=== PATIENT | female | born 1965 | race Caucasian/White ===

== ENCOUNTER 2020-03-13 12:19 | Outpatient (REF) | payer OTHER, SELFPAY ==
[2020-03-13 14:53] LABS: MANUAL DIFF FLAG NO
[2020-03-13 14:57] LABS: Basophils Percent Auto 0.6 % (0-2); Eosinophils Absolute Auto 0.1 X10*3/uL (0.0-0.4); Eosinophils Percent Auto 2.1 % (0-4); Hematocrit 40.2 % (37-47); Hemoglobin 13.3 g/dl (12.0-16.0); Imm Gran Abs Auto 0.01 X10*3/uL (0.00-0.03); Imm Gran Pct Auto 0.2 % (0.0-0.4); Lymphocytes Absolute Auto 1.9 X10*3/uL (1.2-4.9); Lymphocytes Percent Auto 38.2 % (20-40); Mean Corpuscular HGB Conc 33.1 g/dl (31.0-35.0); Mean Corpuscular Volume 96.9 fL (80-98); Mean Platelet Volume 9.5 fL (9.4-12.3); Monocytes Absolute Auto 0.3 X10*3/uL (0.1-1.2); Monocytes Percent Auto 5.7 % (2-11); Neutrophils Absolute Auto 2.6 X10*3/uL (2.0-8.3); Neutrophils Percent Auto 53.2 % (45-73); Platelet Count 329 X10*3/uL (160-400); Red Blood Count 4.15 X10*6/uL (4.20-5.50); Red Cell Distribution Width 12.7 % (11.0-16.0); White Blood Count 4.9 X10*3/uL (4.8-10.8)
[2020-03-13 15:27] LABS: Alanine Aminotransferase 35 U/L (0-31); Albumin Level 4.4 g/dL (3.5-5.0); Alkaline Phosphatase 97 U/L (39-117); Anion Gap 14 (12-20); Aspartate Amino Transferase 20 U/L (5-31); Bilirubin Total 0.9 mg/dL (0.0-1.0); Blood Urea Nitrogen 13 mg/dL (9-16); Calcium 8.8 mg/dL (8.4-10.2); Carbon Dioxide 29 mmol/L (22-29); Chloride 101 mmol/L (96-108); Estimated Glomerular Filt Rate > 60; Glucose Random 84 mg/dL (60-115); Potassium 4.6 mmol/l (3.3-5.1); Sodium 139 mmol/L (135-145); Total Protein 6.6 g/dL (6.5-8.0)
[2020-03-13 15:51] LABS: Free T4 (Free Thyroxine) 0.87 ng/dL (0.71-1.85); Vitamin D 25-OH Total 55.7 ng/mL (>30)
[2020-03-13 15:52] LABS: Vitamin B12 > 2000 pg/mL (200-900)
[2020-03-13 16:29] LABS: T4 Thyroxine 5.1 ug/dL (4.5-12.0)
[2020-03-14 08:48] LABS: Thyroid Peroxidase Antibodies 1 IU/mL (<9)
[2020-03-14 18:37] LABS: Triiodothyronine T3 Total 104 ng/dL (76-181)
[2020-03-16 06:56] LABS: Copper, serum 105 mcg/dL (70-175)
[2020-03-16 16:47] LABS: Zinc 221 mcg/dL (60-130)
[2020-03-17 12:43] LABS: Triiodothyronine T3 Reverse 13 ng/dL (8-25)
== END 2020-03-13 12:20 | disposition home or self-care (01) ==
LOC: HO.HMGCLDS 12:19
PROVIDERS: PCP Family Medicine; Visit Provider Psychiatry & Neurology Psychiatry
DX: R53.83 Other fatigue (principal); F41.9 Anxiety disorder, unspecified; F32.9 Major depressive disorder, single episode, unspecified; L65.9 Nonscarring hair loss, unspecified; E55.9 Vitamin D deficiency, unspecified
CPT/HCPCS: 36415; 80053; 82306; 82525; 82607; 84436; 84439; 84443; 84480; 84481; 84482; 84630; 85025; 86376

== ENCOUNTER 2020-06-25 08:12 | Outpatient (REF) | payer OTHER, SELFPAY ==
[2020-06-25 09:28] LABS: C Reactive Protein 0.07 mg/dL (< or = 0.50)
[2020-06-25 09:37] LABS: Erythrocyte Sedimentation Rate 2 MM/HR (0-20)
[2020-06-26 08:07] LABS: Follicle Stimulating Hormone 72.9 mIU/mL; Lutenizing Hormone 35.4 mIU/mL
[2020-06-26 09:21] LABS: DHEA Sulfate 40 mcg/dL (8-188)
[2020-06-26 14:56] LABS: Adrenocorticotropic Hormone 13 pg/mL (6-50)
[2020-06-28 16:31] LABS: Iodine, Serum/Plasma 57 mcg/L (52-109)
[2020-06-28 22:31] LABS: Anti Nuclear Antibody Pattern Nuclear, Homogeneous; Anti Nuclear Antibody Screen POSITIVE (NEGATIVE); Anti Nuclear Antibody Titer 1:40 titer
[2020-06-28 23:21] LABS: Pregnenolone, LC/MS 47 ng/dL (22-237)
[2020-06-29 15:46] LABS: Progesterone <0.1 ng/mL
[2020-06-29 18:12] LABS: Testosterone, Free 0.8 pg/mL (0.1-6.4); Testosterone, Total 12 ng/dL (2-45)
[2020-07-01 00:56] LABS: Dihydrotestosterone <5 ng/dL (< OR = 20); Estradiol Free <0.03 pg/mL; Estradiol, Ultrasensitive <2 pg/mL
[2020-07-04 08:27] LABS: Methylmalonic Acid 169 nmol/L (87-318)
== END 2020-06-25 08:13 | disposition home or self-care (01) ==
LOC: HO.LAB 08:12
PROVIDERS: PCP Family Medicine; Visit Provider Nurse Practitioner Family
DX: R53.83 Other fatigue (principal); L65.8 Other specified nonscarring hair loss; N95.8 Other specified menopausal and perimenopausal disorders
CPT/HCPCS: 36415; 82024; 82533; 82627; 82642; 82670; 82681; 83001; 83002; 83735; 83789; 83921; 84143; 84144; 84402; 84403; 85652; 86038; 86039; 86140

== ENCOUNTER 2020-11-22 15:30 | Outpatient (REF) | payer OTHER, SELFPAY ==
[2020-11-22 16:03] LABS: MANUAL DIFF FLAG NO
[2020-11-22 16:12] LABS: Basophils Percent Auto 0.3 % (0-2); Eosinophils Absolute Auto 0.1 X10*3/uL (0.0-0.4); Eosinophils Percent Auto 2.1 % (0-4); Hematocrit 34.9 % (37-47); Hemoglobin 11.5 g/dl (12.0-16.0); Imm Gran Abs Auto 0.01 X10*3/uL (0.00-0.03); Imm Gran Pct Auto 0.2 % (0.0-0.4); Lymphocytes Absolute Auto 1.8 X10*3/uL (1.2-4.9); Lymphocytes Percent Auto 30.6 % (20-40); Mean Corpuscular Hemoglobin 31.6 pg (27.0-33.0); Mean Corpuscular Volume 95.9 fL (80-98); Mean Platelet Volume 9.3 fL (9.4-12.3); Monocytes Absolute Auto 0.3 X10*3/uL (0.1-1.2); Monocytes Percent Auto 5.7 % (2-11); Neutrophils Absolute Auto 3.6 X10*3/uL (2.0-8.3); Neutrophils Percent Auto 61.1 % (45-73); Platelet Count 258 X10*3/uL (160-400); Red Blood Count 3.64 X10*6/uL (4.20-5.50); Red Cell Distribution Width 12.4 % (11.0-16.0); White Blood Count 5.8 X10*3/uL (4.8-10.8)
[2020-11-22 16:34] LABS: Alanine Aminotransferase 29 U/L (0-31); Albumin Level 3.9 g/dL (3.5-5.0); Alkaline Phosphatase 84 U/L (39-117); Anion Gap 11 (12-20); Aspartate Amino Transferase 19 U/L (5-31); Bilirubin Total 0.6 mg/dL (0.0-1.0); Blood Urea Nitrogen 18 mg/dL (9-16); Calcium 8.9 mg/dL (8.4-10.2); Carbon Dioxide 27 mmol/L (22-29); Chloride 107 mmol/L (96-108); Estimated Glomerular Filt Rate > 60; Glucose Random 79 mg/dL (60-115); Potassium 3.9 mmol/L (3.3-5.1); Sodium 141 mmol/L (135-145); Total Protein 5.7 g/dL (6.5-8.0)
[2020-11-22 16:53] LABS: TSH reflex Free T4 0.99 uIU/mL (0.32-4.0)
[2020-11-23 17:51] LABS: Triiodothyronine T3 Total 74 ng/dL (76-181)
[2020-11-26 15:41] LABS: Anti Nuclear Antibody Screen NEGATIVE (NEGATIVE)
[2020-11-27 15:40] LABS: Iodine, Serum/Plasma 47 mcg/L (52-109)
== END 2020-11-22 15:31 | disposition home or self-care (01) ==
LOC: HO.LAB 15:30
PROVIDERS: Visit Provider Dermatology
DX: L64.8 Other androgenic alopecia (principal)
CPT/HCPCS: 36415; 80053; 83789; 84134; 84443; 84480; 85025; 86038; 86039

== ENCOUNTER 2021-01-04 09:50 | Outpatient (REF) | payer OTHER, SELFPAY ==
[2021-01-04 10:12] LABS: MANUAL DIFF FLAG NO
[2021-01-04 11:16] LABS: Basophils Percent Auto 0.8 % (0-2); Eosinophils Absolute Auto 0.1 X10*3/uL (0.0-0.4); Eosinophils Percent Auto 3.7 % (0-4); Hematocrit 37.2 % (37-47); Hemoglobin 12.4 g/dl (12.0-16.0); Imm Gran Abs Auto 0.01 X10*3/uL (0.00-0.03); Imm Gran Pct Auto 0.3 % (0.0-0.4); Lymphocytes Absolute Auto 1.4 X10*3/uL (1.2-4.9); Lymphocytes Percent Auto 38.3 % (20-40); Mean Corpuscular HGB Conc 33.3 g/dl (31.0-35.0); Mean Corpuscular Hemoglobin 32.4 pg (27.0-33.0); Mean Corpuscular Volume 97.1 fL (80-98); Mean Platelet Volume 9.8 fL (9.4-12.3); Monocytes Absolute Auto 0.2 X10*3/uL (0.1-1.2); Monocytes Percent Auto 5.6 % (2-11); Neutrophils Absolute Auto 1.9 X10*3/uL (2.0-8.3); Neutrophils Percent Auto 51.3 % (45-73); Platelet Count 292 X10*3/uL (160-400); Red Blood Count 3.83 X10*6/uL (4.20-5.50); Red Cell Distribution Width 12.7 % (11.0-16.0); White Blood Count 3.8 X10*3/uL (4.8-10.8)
[2021-01-04 12:06] LABS: Iron 53 mcg/dL (30-160); Percent Iron Saturation 15 % (15-50); Total Iron Binding Capacity 345 mcg/dL (228-428); Unsaturated Iron Binding 292 ug/dL
[2021-01-04 12:17] LABS: Vitamin D 25-OH Total 78.3 ng/mL (>30)
[2021-01-04 12:33] LABS: Folate > 20.0 ng/mL (> or = 4.0); Vitamin B12 1541 pg/mL (200-900)
[2021-01-04 12:53] LABS: Ferritin 115 ng/mL (10-250); T4 Thyroxine 5.9 ug/dL (4.5-12.0)
[2021-01-06 04:11] LABS: Triiodothyronine T3 Free 2.9 pg/mL (2.3-4.2); Triiodothyronine T3 Total 94 ng/dL (76-181)
[2021-01-07 19:06] LABS: Thyroid Peroxidase Antibodies 2 IU/mL (<9)
[2021-01-10 11:11] LABS: Triiodothyronine T3 Reverse 8 ng/dL (8-25)
[2021-01-10 13:57] LABS: Vitamin B6 20.4 ng/mL (2.1-21.7)
== END 2021-01-04 09:51 | disposition home or self-care (01) ==
LOC: HO.LAB 09:50
PROVIDERS: PCP Family Medicine; Visit Provider Psychiatry & Neurology Psychiatry
DX: R53.83 Other fatigue (principal); D64.9 Anemia, unspecified; F32.A Depression, unspecified
CPT/HCPCS: 36415; 82306; 82607; 82728; 82746; 83540; 84207; 84436; 84439; 84443; 84480; 84481; 84482; 85025; 86376

== ENCOUNTER 2021-05-28 07:25 | Outpatient (REF) | payer OTHER, SELFPAY ==
[2021-05-29 17:11] LABS: DHEA Sulfate 41 mcg/dL (5-167); Sex Hormone Binding Globulin 104 nmol/L (17-124)
[2021-06-01 22:40] LABS: Dihydrotestosterone <5 ng/dL (< OR = 20)
[2021-06-01 23:56] LABS: Estrone 14 pg/mL
[2021-06-02 14:22] LABS: Progesterone 2.1 ng/mL
[2021-06-02 18:56] LABS: Testosterone, Free 0.5 pg/mL (0.1-6.4); Testosterone, Total 8 ng/dL (2-45)
[2021-06-03 09:52] LABS: Pregnenolone, LC/MS 27 ng/dL (22-237)
[2021-06-06 21:31] LABS: Estradiol Free 0.06 pg/mL; Estradiol, Ultrasensitive 4 pg/mL
== END 2021-05-28 07:26 | disposition home or self-care (01) ==
LOC: HO.HMGCLR 07:25
PROVIDERS: PCP Family Medicine; Visit Provider Psychiatry & Neurology Psychiatry
DX: Z78.0 Asymptomatic menopausal state (principal)
CPT/HCPCS: 36415; 82627; 82642; 82670; 82679; 82681; 84143; 84144; 84270; 84402; 84403

== ENCOUNTER 2021-07-25 15:47 | Outpatient (REF) | payer OTHER, SELFPAY ==
[2021-07-25 16:12] LABS: MANUAL DIFF FLAG NO
[2021-07-25 16:59] LABS: Basophils Percent Auto 0.7 % (0-2); Eosinophils Absolute Auto 0.3 X10*3/uL (0.0-0.4); Imm Gran Abs Auto 0.01 X10*3/uL (0.00-0.03); Imm Gran Pct Auto 0.2 % (0.0-0.4); Lymphocytes Absolute Auto 2.2 X10*3/uL (1.2-4.9); Lymphocytes Percent Auto 37.7 % (20-40); Mean Corpuscular HGB Conc 33.3 g/dl (31.0-35.0); Mean Corpuscular Hemoglobin 31.9 pg (27.0-33.0); Mean Corpuscular Volume 95.6 fL (80.0-98.0); Mean Platelet Volume 9.1 fL (9.4-12.3); Monocytes Absolute Auto 0.4 X10*3/uL (0.1-1.2); Monocytes Percent Auto 6.1 % (2-11); Neutrophils Absolute Auto 2.9 x10*3/uL (2.0-8.3); Neutrophils Percent Auto 50.3 % (45-73); Platelet Count 299 X10*3/uL (160-400); Red Blood Count 4.08 X10*6/uL (4.20-5.50); Red Cell Distribution Width 12.7 % (11.0-16.0); White Blood Count 5.8 X10*3/uL (4.8-10.8)
[2021-07-25 17:02] LABS: Iron 97 mcg/dL (30-160); Percent Iron Saturation 28 % (15-50); Total Iron Binding Capacity 352 mcg/dL (228-428); Unsaturated Iron Binding 255 ug/dL
[2021-07-25 17:26] LABS: Ferritin 55 ng/mL (10-250); Free T4 (Free Thyroxine) 0.84 ng/dL (0.71-1.85); T4 Thyroxine 6.2 ug/dL (4.5-12.0); Thyroid Stimulating Hormone 1.21 uIU/mL (0.32-4.0)
[2021-07-27 04:02] LABS: DHEA Sulfate 36 mcg/dL (5-167)
[2021-07-27 04:06] LABS: Follicle Stimulating Hormone 56.3 mIU/mL; Lutenizing Hormone 31.6 mIU/mL; Sex Hormone Binding Globulin 112 nmol/L (17-124)
[2021-07-27 04:46] LABS: Triiodothyronine T3 Free 3.2 pg/mL (2.3-4.2); Triiodothyronine T3 Total 107 ng/dL (76-181)
[2021-07-27 07:07] LABS: Thyroid Peroxidase Antibodies 4 IU/mL (<9)
[2021-07-29 23:57] LABS: Pregnenolone, LC/MS 63 ng/dL (22-237)
[2021-07-31 13:51] LABS: Triiodothyronine T3 Reverse 12 ng/dL (8-25)
[2021-07-31 15:22] LABS: Testosterone, Free 0.7 pg/mL (0.1-6.4); Testosterone, Total 14 ng/dL (2-45)
[2021-07-31 21:27] LABS: Progesterone 0.4 ng/mL
[2021-07-31 23:16] LABS: Estrone 27 pg/mL
[2021-08-01 02:51] LABS: Dihydrotestosterone <5 ng/dL (< OR = 20)
[2021-08-03 03:25] LABS: Estradiol Free 0.47 pg/mL; Estradiol, Ultrasensitive 35 pg/mL
== END 2021-07-25 15:48 | disposition home or self-care (01) ==
LOC: HO.LAB 15:47
PROVIDERS: Visit Provider Psychiatry & Neurology Psychiatry
DX: E03.9 Hypothyroidism, unspecified (principal); Z78.0 Asymptomatic menopausal state; E61.1 Iron deficiency
CPT/HCPCS: 36415; 82627; 82642; 82670; 82679; 82681; 82728; 83001; 83002; 83540; 84143; 84144; 84270; 84402; 84403; 84436; 84439; 84443; 84480; 84481; 84482; 85025; 86376

== ENCOUNTER 2022-08-27 08:31 | Outpatient (REF) | payer OTHER, SELFPAY ==
[2022-08-27 08:52] LABS: MANUAL DIFF FLAG NO
[2022-08-27 10:11] LABS: Basophils Percent Auto 1.2 % (0-2); Eosinophils Absolute Auto 0.2 X10*3/uL (0.0-0.4); Eosinophils Percent Auto 6.1 % (0-4); Hematocrit 40.9 % (37.0-47.0); Hemoglobin 13.4 g/dl (12.0-16.0); Imm Gran Abs Auto 0.01 X10*3/uL (0.00-0.03); Imm Gran Pct Auto 0.3 % (0.0-0.4); Lymphocytes Absolute Auto 1.2 X10*3/uL (1.2-4.9); Lymphocytes Percent Auto 35.9 % (20-40); Mean Corpuscular HGB Conc 32.8 g/dl (31.0-35.0); Mean Corpuscular Hemoglobin 32.1 pg (27.0-33.0); Mean Corpuscular Volume 98.1 fL (80.0-98.0); Mean Platelet Volume 9.5 fL (9.4-12.3); Monocytes Absolute Auto 0.3 X10*3/uL (0.1-1.2); Monocytes Percent Auto 7.9 % (2-11); Neutrophils Absolute Auto 1.7 x10*3/uL (2.0-8.3); Neutrophils Percent Auto 48.6 % (45-73); Platelet Count 302 X10*3/uL (160-400); Red Blood Count 4.17 X10*6/uL (4.20-5.50); White Blood Count 3.4 X10*3/uL (4.8-10.8)
[2022-08-27 11:45] LABS: Ferritin 43 ng/mL (10-250); Free T4 (Free Thyroxine) 0.77 ng/dL (0.71-1.85); T4 Thyroxine 5.2 ug/dL (4.5-12.0)
[2022-08-29 08:29] LABS: Thyroid Peroxidase Antibodies 1 IU/mL (<9)
[2022-08-29 10:13] LABS: DHEA Sulfate 43 mcg/dL (5-167); Follicle Stimulating Hormone 44.8 mIU/mL; Lutenizing Hormone 23.9 mIU/mL; Sex Hormone Binding Globulin 72 nmol/L (17-124); Triiodothyronine T3 Free 2.8 pg/mL (2.3-4.2); Triiodothyronine T3 Total 95 ng/dL (76-181)
[2022-09-02 11:08] LABS: Triiodothyronine T3 Reverse 8 ng/dL (8-25)
[2022-09-02 15:09] LABS: Progesterone 0.4 ng/mL
[2022-09-04 20:38] LABS: Testosterone, Free 0.7 pg/mL (0.1-6.4); Testosterone, Total 7 ng/dL (2-45)
[2022-09-06 00:25] LABS: Estrone 17 pg/mL
[2022-09-06 06:03] LABS: Dihydrotestosterone 6 ng/dL (< OR = 20)
[2022-09-06 15:29] LABS: Pregnenolone, LC/MS 26 ng/dL (22-237)
[2022-09-14 05:54] LABS: Estradiol Free 0.62 pg/mL; Estradiol, Ultrasensitive 42 pg/mL
== END 2022-08-27 08:32 | disposition home or self-care (01) ==
LOC: HO.LAB 08:31
PROVIDERS: Visit Provider Psychiatry & Neurology Psychiatry
DX: E07.81 Sick-euthyroid syndrome (principal); E03.9 Hypothyroidism, unspecified; R53.82 Chronic fatigue, unspecified; N95.9 Unspecified menopausal and perimenopausal disorder; R53.83 Other fatigue; R68.89 Other general symptoms and signs; L65.9 Nonscarring hair loss, unspecified; Z86.39 Personal history of other endocrine, nutritional and metabolic disease
CPT/HCPCS: 36415; 82627; 82642; 82670; 82679; 82681; 82728; 83001; 83002; 84143; 84144; 84270; 84402; 84403; 84436; 84439; 84443; 84480; 84481; 84482; 85025; 86376

== ENCOUNTER 2024-01-29 16:11 | Outpatient (REF) | payer OTHER, SELFPAY ==
[2024-01-29 17:34] LABS: Free T4 (Free Thyroxine) 0.96 ng/dL (0.71-1.85); T4 Thyroxine 5.8 ug/dL (4.5-12.0); Thyroid Stimulating Hormone 1.21 uIU/mL (0.32-4.0); Vitamin D 25-OH Total 34.7 ng/mL (>30)
[2024-01-29 18:22] LABS: Folate 9.3 ng/mL (> or = 4.0); Vitamin B12 > 2000 pg/mL (200-900)
[2024-01-31 09:38] LABS: Sex Hormone Binding Globulin 117 nmol/L (14-73)
[2024-02-01 12:19] LABS: DHEA Sulfate 43 mcg/dL (5-167)
[2024-02-01 12:57] LABS: Thyroid Peroxidase Antibodies 1 IU/mL (<9)
[2024-02-03 01:35] LABS: Iodine, Serum/Plasma 49 mcg/L (52-109)
[2024-02-03 17:13] LABS: Triiodothyronine T3 Reverse 14 ng/dL (8-25)
[2024-02-04 00:13] LABS: Pregnenolone, LC/MS 31 ng/dL (22-237)
[2024-02-05 06:49] LABS: Estrone 12 pg/mL
[2024-02-06 03:29] LABS: Dihydrotestosterone <5 ng/dL (< OR = 20)
[2024-02-06 22:04] LABS: Testosterone, Free 0.4 pg/mL (0.1-6.4); Testosterone, Total 7 ng/dL (2-45)
[2024-02-08 01:08] LABS: Estradiol Ultra Sensitive 21 pg/mL
[2024-02-12 13:45] LABS: Progesterone 0.4 ng/mL
== END 2024-01-29 16:12 | disposition home or self-care (01) ==
LOC: HO.LAB 16:11
PROVIDERS: PCP Family Medicine; Visit Provider Psychiatry & Neurology Psychiatry
DX: N95.9 Unspecified menopausal and perimenopausal disorder (principal); E03.9 Hypothyroidism, unspecified; E07.81 Sick-euthyroid syndrome; E55.9 Vitamin D deficiency, unspecified; R53.82 Chronic fatigue, unspecified
CPT/HCPCS: 36415; 82306; 82607; 82627; 82642; 82670; 82679; 82746; 83789; 84143; 84144; 84270; 84402; 84403; 84436; 84439; 84443; 84482; 86376